=== PATIENT | female | born 1930 | race Caucasian/White ===

== ENCOUNTER 2017-08-23 08:08 | Emergency (ER) | payer OTHER ==
[~2017-08-23] VITALS: Ht 157.5 cm; Wt 52.6 kg
[~2017-08-23 08:08] MED LIST: CALTRATE 600600 MG PO; CENTRUM SILVER1 TA1 PO; LEVOTHYROXIN0.075 MG PO; NORVASC 5MG TAB5 MG PO
[2017-08-23 08:20] VITALS: BP 175/93
--- NOTE | 2017-08-23 09:16 | CT SCAN REPORT ---
EXAMINATION: CT HEAD AND CT CERVICAL SPINE WITHOUT CONTRAST. CLINICAL INFORMATION: Fall and struck head. Pain. COMPARISON: CT brain 07/20/2015. TECHNIQUE: 5 mm thin axial and reformatted 2.5 and thin images of brain were obtained. Subsequently 2.5 mm thin axial and reformatted 2 mm sagittal and coronal images of cervical spine were obtained. DLP 860. FINDINGS: BRAIN: There is no acute intra-axial, extra-axial bleed, masses or midline shift. There is no acute infarct in evolution. The cruz to white matter differentiation is maintained. The lateral ventricles are enlarged and so are the cortical sulci. There is mild periventricular hypodensity in both cerebral hemispheres suggestive chronic small vessel ischemic changes. There is dystrophic calcification in bilateral basal ganglia. Bone windows reveal no calvarial abnormality. There is no scalp hematoma. Normal aeration of bilateral paranasal sinuses and mastoid air cells are seen. CERVICAL SPINE: There is mild straightening of cervical lordosis. There is grade 1 anterolisthesis C3 over C4. Rest of the alignment and all vertebral heights is normal. Mild loss of C5-C6 and C6-C7 disc heights with ventral spondylosis noted. There is no visible acute fracture, dislocation or lytic process. There is mild posterior spondylosis and uncovertebral hypertrophic changes at C5-C6 and C6-C7 disc levels with bilateral mild to moderate narrowing of neural foramina at these levels. There is bilateral C4-C5 facet joint hypertrophy. No visible acute fracture seen. The prevertebral and paravertebral soft tissues are normal. There is bilateral apical pleural thickening and parenchymal scarring. No bony erosive changes seen. IMPRESSION: No acute intracranial process seen. There is age-related cerebral atrophy Grade 1 anterolisthesis sclerotic C3 over C4. Degenerative disc changes C5-C6 and C6-C7 disc levels with posterior spondylosis, uncovertebral hypertrophic changes and mild bilateral neural foraminal narrowing. No lytic process seen. Bilateral apical pleural thickening and parenchymal scarring.
--- NOTE | 2017-08-23 11:50 | ED MVC/FALL/TRAUMA COMPLAINT ---
History of Present Illness General Chief Complaint: Fall Stated Complaint: FALL HIT HEAD X 3DAYS, -LOC Source: patient, family Exam Limitations: no limitations Vital Signs & Intake/Output Vital Signs & Intake/Output Vital Signs Date Time Temp Pulse Resp B/P B/P Pulse O2 O2 Flow FiO2 Mean Ox Delivery Rate 08/23 0820 97.0 84 18 175/93 98 Room Air Room Air Allergies Coded Allergies: NO KNOWN ALLERGIES (09/10/13) Reconcile Medications Amlodipine (Norvasc 5MG Tab) 5 MG TAB 1 TAB PO DAILY HEART (Reported) Calcium Carbonate (Caltrate 600) 600 MG TAB 1 TAB PO DAILY SUPPLEMENT ( Reported) Levothyroxine Sodium 0.075 MG TAB 0.075 MG PO DAILY AC THYROID (Reported) Multivitamin, Minerals, and (Centrum Silver) 1 TAB TAB 1 TAB PO DAILY SUPPLEMENT (Reported) Triage Note: PT TO ED S/P MECHANICAL FALL BACKWARDS ON TUESDAY, C/O PAIN TO RIGHT BUTT AREA, ALSO STATING HIT RIGHT SIDE OF HEAD ON REGISTER IN THE BEDROOM, -LOC. DENIES BLOOD THINNERS. Triage Nurses Notes Reviewed? yes Onset: Abrupt Duration: day(s): (4), constant Method of Injury: fall Loss of Consciousness: no loss of consciousness No Modifying Factors: none HPI: He-year-old female comes into the emergency room after falling backwards on this past Tuesday. Patient reports that she was reaching up to hang something and she had some cramping in her legs and fell backwards and hit her head very itchy. HEENT on her right hip area. She denies any loss of consciousness. Denies any anticoagulants. Mild headache. Denies any other associated symptoms. She decided to come in for further evaluation. She is able to walk and drive. She is a high functioning 87-year-old female. She lives by herself. She currently is asking if she'll be able to leave soon because she has to go to [facility] in a little while over in [place] that she needs to attend. (Gustavo Harley) Past History Travel History Traveled to [place] past 21 day No Medical History Any Pertinent Medical History? see below for history Neurological: NONE EENT: NONE Cardiovascular: hypertension Respiratory: NONE Gastrointestinal: GERD Hepatic: NONE Renal: NONE Musculoskeletal: NONE Psychiatric: NONE Endocrine: hypothyroidism Blood Disorders: NONE Cancer(s): PRE-CANCER SKIN. IRONING WORKER/Reproductive: NONE Surgical History Surgical History: non-contributory Psychosocial History What is your primary language Romanian Tobacco Use: Never used ETOH Use: denies use Illicit Drug Use: denies illicit drug use Family History Hx Contributory? No (Gustavo Harley) Review of Systems Review of Systems Constitutional: Reports: no symptoms. Eyes: Reports: no symptoms. Ears, Nose, Throat, Mouth: Reports: no symptoms. Respiratory: Reports: no symptoms. Cardiovascular: Reports: no symptoms. Gastrointestinal/Abdominal: Reports: no symptoms. Genitourinary: Reports: no symptoms. Musculoskeletal: Reports: see HPI. Skin: Reports: no symptoms. Neurological/Psychological: Reports: see HPI. All Other Systems: Reviewed and Negative (Gustavo Harley) Physical Exam Physical Exam General Appearance: well developed/nourished, no apparent distress, alert, awake Head: atraumatic, normal appearance Eyes: Bilateral: normal appearance, EOMI. Ears, Nose, Throat, Mouth: hearing grossly normal, moist mucous membrane Neck: normal inspection, full range of motion Respiratory: normal breath sounds, no respiratory distress Cardiovascular: regular rate/rhythm Gastrointestinal: soft Back: normal inspection, full range of motion of right hip, normal inspection, no bruising appreciated, Extremities: normal range of motion Neurologic/Psych: awake, alert, oriented x 3, normal gait Skin: intact, normal color Core Measures ACS in differential dx? No CVA/TIA Diagnosis No Sepsis Present: No Sepsis Focused Exam Completed? No (Gustvao Harley) Progress Differential Diagnosis: abd injury, C/T/L spine injury, ext injury, ICH, pelvis injury, pnemothorax, spinal cord injury Plan of Care: Orders Procedure Date/time Status XRY-SACRUM AND COCCYX 08/23 1201 Active XRY-HIP 2-3 VIEWS, RIGHT 08/23 1124 Active Diagnostic Imaging: Viewed by Me: Radiology Read, CT Scan. Discussed w/RAD: Radiology Read, CT Scan. Radiology Impression: PATIENT: LONG GOLDMAN PRESENT AGE: 87 PATIENT ACCOUNT NO: [id number] : [birth year] LOCATION: [facility] ORDERING PHYSICIAN: Maryellen KIM SERVICE DATE: 08/23/17 EXAM TYPE: CAT - CT CERV SPINE WO IV CONTRAST; CT HEAD WO IV CONTRAST EXAMINATION: CT HEAD AND CT CERVICAL SPINE WITHOUT CONTRAST. CLINICAL INFORMATION: Fall and struck head. Pain. COMPARISON: CT brain 07/20/2015. TECHNIQUE: 5 mm thin axial and reformatted 2.5 and thin images of brain were obtained. Subsequently 2.5 mm thin axial and reformatted 2 mm sagittal and coronal images of cervical spine were obtained. DLP 860. FINDINGS: BRAIN: There is no acute intra-axial, extra-axial bleed, masses or midline shift. There is no acute infarct in evolution. The cruz to white matter differentiation is maintained. The lateral ventricles are enlarged and so are the cortical sulci. There is mild periventricular hypodensity in both cerebral hemispheres suggestive chronic small vessel ischemic changes. There is dystrophic calcification in bilateral basal ganglia. Bone windows reveal no calvarial abnormality. There is no scalp hematoma. Normal aeration of bilateral paranasal sinuses and mastoid air cells are seen. CERVICAL SPINE: There is mild straightening of cervical lordosis. There is grade 1 anterolisthesis C3 over C4. Rest of the alignment and all vertebral heights is normal. Mild loss of C5-C6 and C6-C7 disc heights with ventral spondylosis noted. There is no visible acute fracture, dislocation or lytic process. There is mild posterior spondylosis and uncovertebral hypertrophic changes at C5-C6 and C6-C7 disc levels with bilateral mild to moderate narrowing of neural foramina at these levels. There is bilateral C4-C5 facet joint hypertrophy. No visible acute fracture seen. The prevertebral and paravertebral soft tissues are normal. There is bilateral apical pleural thickening and parenchymal scarring. No bony erosive changes seen. IMPRESSION: No acute intracranial process seen. There is age-related cerebral atrophy Grade 1 anterolisthesis sclerotic C3 over C4. Degenerative disc changes C5-C6 and C6-C7 disc levels with posterior spondylosis, uncovertebral hypertrophic changes and mild bilateral neural foraminal narrowing. No lytic process seen. Bilateral apical pleural thickening and parenchymal scarring. DICTATED BY: Serafin Villegas MD DATE/TIME DICTATED:901 RICE DRIER:MOLINA DATE/TIME TRANSCRIBED:08/23/17901 CONFIDENTIAL, DO NOT COPY WITHOUT APPROPRIATE AUTHORIZATION. <Electronically signed in Other Vendor System> SIGNED BY: Serafin Villegas MD 08/23/17 0916, PATIENT: LONG GOLDMAN PRESENT AGE: 87 PATIENT ACCOUNT NO: [id number] : [birth year] LOCATION: [facility] ORDERING PHYSICIAN: Gustavo KIM SERVICE DATE: 08/23/17 EXAM TYPE: RAD - XRY-HIP 2-3 VIEWS, RIGHT; XRY-SACRUM AND COCCYX EXAMINATION: XR SACRUM AND COCCYX XR HIP, LEFT CLINICAL INFORMATION: Right hip/low back pain. COMPARISON: None TECHNIQUE: AP and lateral views of the sacrum and 2 views of the coccyx were obtained. AP and frog-leg lateral views of the right hip were obtained. FINDINGS: Sacrum and coccyx: Bones are osteopenic and evaluation is limited by overlying fecal material and intraluminal bowel gas. There is moderate degenerative arthritis in the right SI joint inferiorly. More minimal degenerative arthritis is present in the left SI joint. Degenerative disc disease and facet arthropathy is present in the lower lumbar spine. No fractures are identified. Bones are osteopenic. 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 Bones are osteopenic. No acute fractures are identified in the right hip. Phleboliths are present in the central pelvis. IMPRESSION: 1. No acute fracture or malalignment. 2. 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 3. 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 <Electronically signed in Other Vendor System> SIGNED BY: Renny De La Cruz MD 08/23/17 1335 Comments: 08/23/2017 5:10:43 PM Patient clinically looks well. In no apparent distress. Nontoxic appearing. Resting comfortably in room. No evidence of acute trauma. Patient has been walking around in the room as well and to the hallways. She keeps asking when she can leave. She is a high functioning 87-year-old female. She is a no distress upon discharge. (Mars KIM,Gustavo) Departure Departure Disposition: HOME OR SELF CARE Condition: Stable Clinical Impression Primary Impression: Head injury Secondary Impressions: Contusion of right hip Referrals: Sudhakar CARREON,Travis Odell (PCP/Family) Additional Instructions: Take Tylenol for pain. Follow-up with your primary care doctor. Return if any concerns worsening symptoms. Please go over all results of today's visit with your primary care doctor. Contact your primary care doctor to let them know you were here in the emergency room. There may be nonspecific findings which may not be related to your visit today here in the emergency room but may require further evaluation and chronic monitoring by your primary care doctor. If you had a laceration today the chance of foreign body always remains. You should follow-up with your primary care doctor for recheck in 3-5 days for a wound check. If you had an x-ray done there is a chance that a fracture could have been missed on initial read and you should follow-up with your primary care doctor for repeat x-rays if symptoms persist. If your blood pressure was elevated here in the emergency room please have rechecked by [facility] primary care doctor within the next 48. If you were prescribed a narcotic here in the emergency room or any type of controlled substances you're not allowed to drive while taking this medication or operate any type of heavy machinery. Narcotics can make you feel lightheaded dizziness nausea and can cause constipation. You may need to continuous pickling line pickler helper a stool softener. Thank you for choosing [facility] emergency room. Please return to the emergency room immediately if you have any other concerns worsening of symptoms. Departure Forms: Customer Survey General Discharge Information (Gustavo Harley) PA/COTTON WRINGER Co-Sign Statement Statement: ED Attending supervision documentation- x I saw and evaluated the patient. I have also reviewed all the pertinent lab results and diagnostic results. I agree with the findings and the plan of care as documented in the PA's/COTTON WRINGER's documentation. [] I have reviewed the ED Record and agree with the PA's/COTTON WRINGER's documentation. [] Additions or exceptions (if any) to the PAs/COTTON WRINGER's note and plan are summarized below: [] (Jose CARREON,Ignacio)
--- NOTE | 2017-08-23 13:35 | RADIOLOGY REPORT ---
EXAMINATION: XR SACRUM AND COCCYX XR HIP, LEFT CLINICAL INFORMATION: Right hip/low back pain. COMPARISON: None TECHNIQUE: AP and lateral views of the sacrum and 2 views of the coccyx were obtained. AP and frog-leg lateral views of the right hip were obtained. FINDINGS: Sacrum and coccyx: Bones are osteopenic and evaluation is limited by overlying fecal material and intraluminal bowel gas. There is moderate degenerative arthritis in the right SI joint inferiorly. More minimal degenerative arthritis is present in the left SI joint. Degenerative disc disease and facet arthropathy is present in the lower lumbar spine. No fractures are identified. Bones are osteopenic. 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 Bones are osteopenic. No acute fractures are identified in the right hip. Phleboliths are present in the central pelvis. IMPRESSION: 1. No acute fracture or malalignment. 2. 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 3. Degenerative disc disease and facet arthropathy in the lower lumbar spine
== END 2017-08-23 14:01 ==
LOC: ERH 08:08
DX: S09.90XA Unspecified injury of head, initial encounter (principal); S70.01XA Contusion of right hip, initial encounter; W19.XXXA Unspecified fall, initial encounter; Y93.89 Activity, other specified; Y92.9 Unspecified place or not applicable
CPT/HCPCS: 72220; 73502-RT